=== PATIENT | male | born 1985 | race Caucasian/White ===

== ENCOUNTER 2018-03-17 03:16 | Observation (INO) | payer MEDICAID, SELFPAY ==
[2018-03-17] VITALS (13 sets, daily range): BP systolic 120–147; BP diastolic 64–86; PULSE 57–86; RESP 16–18; TEMP 36.4–37.2; O2SAT 91–100; BMI 30.4; BMI 30.7
--- NOTE | 2018-03-17 03:56 | CT_ITS ---
STUDY: CT ABDOMEN AND PELVIS WITHOUT CONTRAST REASON FOR EXAM: Male, 32 years old. Right lower quadrant pain RADIATION DOSAGE (If Supplied By Facility): CTDIvol = ( 10.76 ) mGy, DLP = ( 521.65 ) mGycm TECHNIQUE: Transaxial images were obtained from the dome of the diaphragm to the symphysis pubis without oral contrast, and without intravenous contrast. Sagittal and coronal images were reconstructed. Individualized dose optimization techniques were used for this CT. COMPARISON: None. FINDINGS: The visualized lung bases are unremarkable. The visualized portions of the heart are within normal limits. Normal liver. Normal gallbladder and extrahepatic biliary system. Normal spleen. Normal pancreas. Normal bilateral adrenal glands. Normal right kidney. Normal left kidney. Normal visualized stomach. Normal small intestine. Normal colon. There is a tubular, thick-walled appendix (>7mm), consistent with acute appendicitis, 3 appendicoliths are noted. Normal abdominal aorta. Normal inferior vena cava. Normal retroperitoneum. Normal urinary bladder. Normal abdominal wall. Normal osseous structures. CT/Abdomen/Pelvis without Cont IMPRESSION: Acute appendicitis. Electronically Signed: Brooke Herrera MD at 4:31 EDT Tel , Service support ,
[2018-03-17] MEDS: 0.9% Normal Saline 1,000 ML 1000 ML IV (03:59)
[2018-03-17] MEDS: LORazepam 2 MG/ML Syringe 1 MG IV (03:59)
[2018-03-17] MEDS: Morphine 4 MG/ML Syringe IV ×6 (03:59→18:15)
[2018-03-17] MEDS: Ondansetron 4 MG/2 ML Vial IV (04:00)
[2018-03-17 04:09] LABS: Absolute Neutrophil Count 13.5 X10^3/uL (2.0-7.7); Basophil# 0.02 X10^3/uL; Basophil% 0.1 % (0-1); Eosinophil# 0.31 X10^3/uL; Eosinophils% 1.8 % (0-5); Hematocrit 45.4 % (40-54); Hemoglobin 16.4 g/dl (13.0-16.5); Mean Corp Hgb Conc 36.1 g/gl (32-36); Mean Corpuscular Hgb 31.8 pg (27.0-32.0); Mean Platelet Vol. 10.8 fl (6.2-12.0); Monocyte# 2.28 X10^3/uL; Neutrophil # 13.53 X10^3/uL (2.7-7.7); Neutrophil % 76.9 % (47-70); Platelet Count 199 K/mm3 (150-450); RBC Distribution Width CV 13.1 % (11.6-14.6); RBC Distribution Width SD 41.9 fl (35.1-43.9); Red Blood Count 5.16 M/mm3 (4.6-6.2); White Blood Count 17.6 K/mm3 (4.4-11.0)
[2018-03-17 04:13] LABS: Red Blood Cells-Urine 0 SEEN /hpf (0-5); Squamous Epithelial Cells - UA 0 SEEN /hpf (0-5)
[2018-03-17 04:14] LABS: Color, Urine Yellow (Yellow); Glucose, Dipstick Normal (Normal); Leukocyte Esterase-Dipstick 25 /ul (Negative); Nitrite-Dipstick Negative (Negative); Occult Blood-Urine Negative /ul (Negative); Protein-Dipstick 15 mg/dl (Negative); Specific Gravity, Urine 1.015 (1.002-1.030); Urine Bilirubin Dipstick Negative (Negative); Urine Clarity Cloudy (Clear); Urine Urobilinogen Normal (Normal)
[2018-03-17 04:15] LABS: Ketone-Dipstick 150 mg/dl (Negative)
[2018-03-17 04:18] LABS: Amorphous Sediment 2+; Bacteria RARE /hpf (None Seen); White Blood Cells 0-5 SEEN /hpf (0-5)
[2018-03-17 04:19] LABS: Mucous, Urine 1+ /hpf (<or=2+)
[2018-03-17 04:19] LABS: Differential Indicated SCAN CRITERIA MET; POSITIVE COUNT NO; POSITIVE DIFFERENTIAL YES; POSITIVE MORPHOLOGY NO
[2018-03-17 04:27] LABS: ALB/GLOB Ratio 1.1 RATIO (0.9-2.4); AST(SGOT) 21 U/L (15-37); Alanine Aminotransfer ALT/SGPT 35 U/L (16-61); Alkaline Phosphatase 84 U/L (45-117); Anion Gap 8 (5-15); BUN 11 mg/dL (7-18); BUN/Creat Ratio 11.9 RATIO (10-20); Calcium,Total 9.6 mg/dL (8.5-10.1); Chloride 103 mmol/L (98-107); Creatinine, Serum 0.92 mg/dL (0.70-1.30); EST Glomerular Filtration Rate 99 mL/min (>60); Est Glom Filt Rate - Afr Amer 120 mL/min (>60); Globulin 3.6 g/dL (2.2-4.2); Glucose 112 mg/dL (74-106); Lipase 78 U/L (73-393); Potassium 3.8 mmol/L (3.5-5.1); Protein, Total 7.6 g/dL (6.4-8.2); Sodium Level 141 mmol/L (136-145)
--- NOTE | 2018-03-17 04:27 | NURSING ---
NOTIFIED OF KEYTONE IN URINE
--- NOTE | 2018-03-17 04:34 | ED.VISSUMM ---
- ER Visit Summary Date of Service: 03/17/18 Chief Complaint: Abdominal pain History of Present Illness: The patient is a 32 M who presents with abdominal pain. His pain initially began about 9 AM the day before presentation. He had drank coffee and alcohol and ate pizza the night before and initially had burning epigastric abdominal pain which she attributed to a process such as heartburn. He was able to go to work. He states his symptoms seem to improve through the day. He went to sleep. When he woke up at 2 AM this morning however he had severe right lower quadrant abdominal pain. He states this is more sharp. He did have one episode of nonbloody nonbilious emesis. He denies fevers or chills. He denies any abdominal surgeries. Physical Examination: Afebrile vitals are stable Moist mucous membranes Heart regular rate and rhythm Lungs are clear Abdomen soft nondistended he is markedly tender in the right lower quadrant he does not have rigidity or guarding, he does have rebound tenderness and a positive Rovsing sign, negative psoas sign Test Results: Labs notable for white blood cell count of 17.6. Total bilirubin 1.2. He does have urine ketones. CT of the abdomen and pelvis on my review shows an enlarged appendix at roughly 12 mm and several appendicoliths. Emergency Department Course and Treatment: She was treated with IV fluids morphine and Zofran. On my review the CT I am very concerned for acute appendicitis although radiology read is pending at the time of this dictation. Given his leukocytosis and physical exam findings highly suggestive of appendicitis I spoke to general surgery environmental engineering assistant, Dr. Torres who will see the patient. Patient was given IV Zosyn. Treatment Plan: [] Disposition: Pending surgical consult Impression: Acute appendicitis This note was generated with [employer] dictation software. It may contain incorrect words, spelling, and punctuation that were not noted in review of the chart prior to signing ED Disposition - Plan for ED Patient: Chief Complaint: Abd Pain Referrals: Care Physician,No Primary [Primary Care Provider] -
--- NOTE | 2018-03-17 04:40 | ED.DCSUM_ITS ---
- ER Visit Summary Date of Service: 03/17/18 Chief Complaint: Abdominal pain History of Present Illness: The patient is a 32 M who presents with abdominal pain. His pain initially began about 9 AM the day before presentation. He had drank coffee and alcohol and ate pizza the night before and initially had burning epigastric abdominal pain which she attributed to a process such as heartburn. He was able to go to work. He states his symptoms seem to improve through the day. He went to sleep. When he woke up at 2 AM this morning however he had severe right lower quadrant abdominal pain. He states this is more sharp. He did have one episode of nonbloody nonbilious emesis. He denies fevers or chills. He denies any abdominal surgeries. Physical Examination: Afebrile vitals are stable Moist mucous membranes Heart regular rate and rhythm Lungs are clear Abdomen soft nondistended he is markedly tender in the right lower quadrant he does not have rigidity or guarding, he does have rebound tenderness and a positive Rovsing sign, negative psoas sign Test Results: Labs notable for white blood cell count of 17.6. Total bilirubin 1.2. He does have urine ketones. CT of the abdomen and pelvis on my review shows an enlarged appendix at roughly 12 mm and several appendicoliths. Emergency Department Course and Treatment: She was treated with IV fluids morphine and Zofran. On my review the CT I am very concerned for acute appendicitis although radiology read is pending at the time of this dictation. Given his leukocytosis and physical exam findings highly suggestive of appendicitis I spoke to general surgery director operations broadcast, Dr. Torres who will see the patient. Patient was given IV Zosyn. Treatment Plan: [] Disposition: Pending surgical consult Impression: Acute appendicitis This note was generated with [employer] dictation software. It may contain incorrect words, spelling, and punctuation that were not noted in review of the chart prior to signing ED Disposition - Plan for ED Patient: Chief Complaint: Abd Pain Referrals: Care Physician,No Primary [Primary Care Provider] -
[2018-03-17 04:54] LABS: Differential Comment SCANNED; Platelet Estimate ADEQUATE (ADEQ)
[2018-03-17] MEDS: Lactated Ringers 1,000 ML 120 ML IV (06:08)
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
--- NOTE | 2018-03-17 08:40 | CASEMGMT ---
SW met w/pt in room in regard to self pay status. Pt states he just started a new job, in between insurance. His filled out some paperwork in the ED, he is not certain what paperwork she completed. He states their children have insurance through [facility], is not sure if he will qualify, but will be off work for the next 3 weeks. SW did give pt a Medicaid application and let him know if his wants to complete(he is not feeling up to this at present), SW can fax it in or she can bring it to [facility] on Monday. SW also gave pt information for [facility], [facility], [facility], prescription assist, the care assurance application(in case this is not what completed in ED), and dental clinic information. SW did also ask pt about his alcohol consumption. Pt does not feel this is an issue. Pt states he has stopped drinking in the past for 6-9 months when he has been working out more. Pt states he is drinking more now as it is summer and there are parties, or he will have some beers after work. Pt states he will not be drinking after this. Pt states he also drinks light beer due to the calories. Pt declined any referrals for alcohol use, does not identify his alcohol consumption as problematic. No further needs are anticipated, though SW is available should any needs arise. WILBERT Main, INVESTMENT CONSULTANT
--- NOTE | 2018-03-17 08:52 | NURSING ---
attempted to call ac and or, to give report, no answer.
[2018-03-17] MEDS: 0.9% NaCl Peripheral Flush Adult/Peds IV ×2 (08:54→18:15)
--- NOTE | 2018-03-17 09:00 | NURSING ---
REPORT CALLED TO JOSE DE PAZ.
--- NOTE | 2018-03-17 09:19 | PCM.IMDPSTOP ---
Immediate Post-Op Note Date of Procedure: 03/17/18 Primary Surgeon/Physician: Juani Torres operating system programmer: NOT,DEFINED Pre-Operative Diagnosis: acute appendicitis Post-Operative Diagnosis: acute appendicitis,not perforated Surgery/Procedure Performed:: laparoscopic appendectomy Description of Surgical Findings:: acute appendicitis, not perforated, gangrenous wall Estimated Blood Loss: < 10 ml Specimen's removed: appendix Type of Anesthesia:: General ASA Class: ASA2 Plus Emergency - Admit VTE Documentation VTE Present on Admission: Yes VTE Mechan Device Prophylaxis: SCD's
[2018-03-17] MEDS: Bupiv/Epi 0.5% Mpf 30 ML Vial (09:22)
--- NOTE | 2018-03-17 10:04 | OP.PCM_ITS ---
Report of Operation Date of Procedure: 03/17/18 Pre-Operative Diagnosis: acute appendicitis Post-Operative Diagnosis: acute appendicitis,not perforated Surgery/Procedure Performed:: laparoscopic appendectomy Description of Surgical Findings:: acute appendicitis, not perforated, gangrenous wall ping pong table assembler: NOT,DEFINED Type of Anesthesia:: General Anesthesiologist: Antonio Modi Specimen's removed: appendix Estimated Blood Loss (mL): < 10 ml Fluids Replaced: 1.1 liter RL Description of Procedure: After informed consent was obtained, the patient was brought into the operating room. Appropriate time out protocol was followed. She was then placed in the supine position on the operating table. The patient was then placed under general anesthesia. The patient?s abdomen was then prepped with a sterile surgical skin preparation and sterile surgical drapes were placed. The infraumbilical skin fold was grasped with penetrating clamps and the skin and subcutaneous tissues were infiltrated with local anesthetic. A skin incision was then made. A Veress needle was then inserted into the intraabdominal cavity and checked to be in the proper position with a normal saline drop test. A CO2 pneumoperitoneum was then created. Once this was achieved, the Veress needle was removed and a 5 mm trocar was placed in its stead. A 5 mm laparoscope was then inserted into the trocar. Careful examination of the intraabdominal contents was then done. There was no evidence of injury to any internal organs from placement of the Veress needle or the trocar. Under direct visualization, a 12mm suprapubic trocar and a 5mm left lower quadrant trocar was then placed into the intraabdominal cavity. The skin and subcutaneous tissues at these sites were first infiltrated with local anesthetic. Attention was then directed to the right lower quadrant. The appendix was visualized. The appendix was grossly abnormal - gangrenous wall with fibrinous exudate but no evidence of perforation. The mesentery of the appendix was taken down by cauterizing the tissue from the free edge to the base of the appendix with the Harmonic scalpel. Once the base of the appendix was freed of surrounding tissues, then the linear gastrointestinal stapling device was brought into the abdominal cavity via the 12mm port and placed across the base of the appendix. The stapling device was fired, thus stapling across the base of the appendix and transecting it simultaneously. The appendix was then placed in an Endobag and this was brought out through the suprapubic trocar. The appendix was then forwarded to Pathology for analysis. The appendiceal stump was carefully examined. There was no evidence of any active bleeding or fecal leakage. The surrounding tissues were also examined and there was no evidence of any active bleeding or fecal/bile leakage. The intraabdominal cavity was examined and there was no evidence of further inflammation or tissue abnormality. There was no evidence of any peritoneal fluid. The CO2 pneumoperitoneum was released and all trocars were removed intact. The suprapubic fascia was reapproximated with a figure-of-8 vicryl suture. All skin incisions were reapproximated with monocryl suture. Cavilon and steristrips were applied to reinforce skin closure and proper sterile dressings were placed. The patient was then extubated and brought to the Recovery Room in stable condition. - Complications none noted - Admit VTE Documentation VTE Present on Admission: Yes VTE Mechan Device Prophylaxis: SCD's
--- NOTE | 2018-03-17 11:55 | PCM.DC.APPY ---
Discharge Diet: No Restrictions - drink plenty of fluids avoid carbonated beverages for a few days Discharge Activity: Return to Normal Activity, May not drive while taking narcotic pain medications. Return to work on:: 04/06/18 Lifting Restrictions: no lifting greater than 20 pounds for 2 weeks Call your doctor if your incision/area has: Continuous Slow Oozing, Foul Smelling Discharge Call your doctor if you observe: Fever of 101 or Higher Additional Dressing/Incision Instructions:: Leave dressings in place. May get wet in the shower - do not scrub. Do not soak - no tub baths/swimming Additional Instructions: ambulate as much as possible may climb stairs drink plenty of fluids avoid carbonated beverages for a couple of days if you become constipated you may take an over the counter laxative Medications to take at Discharge Hydrocodone Bitart/Apap 5-325 [[facility] 5MG-325MG] 1 tab PO Q6H PRN PRN 7 Days #20 tab 03/17/18 Allergies/Adverse Reactions: Allergies No Known Allergies Allergy (Verified 03/17/18 03:18) The following prescriptions were given: Hydrocodone Bitart/Apap 5-325 [[facility] 5MG-325MG] 1 tab PO Q6H PRN PRN 7 Days #20 tab PRN Reason: Pain Primary Care Physician: Care Physician,No Primary [Primary Care Provider] - Test Results: Test results from this visit will be discussed in further detail at your follow-up appointment, if applicable. Please Follow Up With: Juani Torres MD - call When: to be seen in 7-10 days, please call for a date and time, thank you
--- NOTE | 2018-03-17 11:58 | DCINST_ITS ---
Discharge Diet: No Restrictions - drink plenty of fluids avoid carbonated beverages for a few days Discharge Activity: Return to Normal Activity, May not drive while taking narcotic pain medications. Return to work on:: 04/06/18 Lifting Restrictions: no lifting greater than 20 pounds for 2 weeks Call your doctor if your incision/area has: Continuous Slow Oozing, Foul Smelling Discharge Call your doctor if you observe: Fever of 101 or Higher Additional Dressing/Incision Instructions:: Leave dressings in place. May get wet in the shower - do not scrub. Do not soak - no tub baths/swimming Additional Instructions: ambulate as much as possible may climb stairs drink plenty of fluids avoid carbonated beverages for a couple of days if you become constipated you may take an over the counter laxative Medications to take at Discharge Hydrocodone Bitart/Apap 5-325 [[facility] 5MG-325MG] 1 tab PO Q6H PRN PRN 7 Days #20 tab 03/17/18 Allergies/Adverse Reactions: Allergies No Known Allergies Allergy (Verified 03/17/18 03:18) The following prescriptions were given: Hydrocodone Bitart/Apap 5-325 [[facility] 5MG-325MG] 1 tab PO Q6H PRN PRN 7 Days #20 tab PRN Reason: Pain Primary Care Physician: Care Physician,No Primary [Primary Care Provider] - Test Results: Test results from this visit will be discussed in further detail at your follow- up appointment, if applicable. Please Follow Up With: Juani Torres MD - call When: to be seen in 7-10 days, please call for a date and time, thank you
[2018-03-17] MEDS: Piperacil/Tazobactam 3.375 GM/50 ML ML IV (14:22)
--- NOTE | 2018-03-19 | APP_PTH ---
PATIENT: MIESHA ROCK LOC: [facility] U#:[id number] AGE/SX: 32/M ROOM: WA306 RE03/17/[address]: Dr. Juani Torres MD : [id number] BED: 1 DIS: 03/17/2018 SPEC #: [id number] RECD: 03/19/18 12:35 STATUS: AUTUMN REQ #: [id number] EUGENIO: 03/19/18 00:[address]: Juani Torres DEPT: SURGICAL PATHOLOGY RECD BY: Juan Carter ENTERED: 03/19/18 12:36 SP TYPE: APPENDIX OT DR: No Primary Care Phys Tissues: Appendix, NOS Procedures: Surgery Specimen Level III HEADER OPERATION: Laparoscopic appendectomy PRE-OP DIAGNOSIS: Acute appendicitis TISSUE SUBMITTED: Appendix MICROSCOPIC DIAGNOSIS Appendix, appendectomy: Acute appendicitis. Acute serositis. AM:kayla 03/20/18 MICROSCOPIC DESCRIPTION Slides are reviewed. GROSS DESCRIPTION Received is one container labeled with the patient's name and designated appendix. The specimen consists of an appendix measuring 7 cm in length and up to 1 cm in average diameter. It is interrupted in the middle ? possible area of rupture. The lumen contains fecal material and possible fecalith. School Attendance Secretary sections are submitted in one cassette. / SJ:kayla 03/19/18 TC:2 CPT: 45206
[2018-03-20 09:41] LABS: Pathologist Review Reviewed
== END 2018-03-17 19:15 | disposition home or self-care (01) ==
LOC: ED 04:41 → MS3 04:47
PROVIDERS: Admitting Provider Surgery; Emergency Provider Emergency Medicine; Visit Provider Surgery
PROC: 0DTJ4ZZ Resection of Appendix, Percutaneous Endoscopic Approach (ICD-10-PCS; CPT 44970; principal; 2018-03-17 09:00)
DX: K35.80 Unspecified acute appendicitis (principal); I10 Essential (primary) hypertension
CPT/HCPCS: 44970; 74176; 80053; 81001; 83690; 85025; 88304; 96361; 96365; 96366; 96375; 96376; 99218; 99283; J7030; J7120; A4216; G0378; J2405